=== PATIENT | female | born 1970 | race African-American/Black ===

== ENCOUNTER 2023-10-21 12:33 | Emergency (ER) | payer OTHER ==
[2023-10-21 12:50] VITALS: BP 148/79; PULSE 89; RESP 20; TEMP 98.3; BMI 26.4
[2023-10-21] MEDS ORDERED: FAMOTIDINE 20 MG TABLET PO ONE (13:50)
[2023-10-21] MEDS ORDERED: MAG HYDROX/AL HYDROX/SIMETH 30 ML UNIT-DOSE CUP PO ONE (13:50)
[2023-10-21] MEDS ORDERED: ACETAMINOPHEN 325 MG TABLET (FP) PO ONE (13:50)
[2023-10-21] MEDS ORDERED: FAMOTIDINE 20 MG TABLET ONE (14:10)
[2023-10-21] MEDS ORDERED: ACETAMINOPHEN 325 MG TABLET (FP) ONE (14:10)
[2023-10-21] MEDS ORDERED: MAG HYDROX/AL HYDROX/SIMETH 30 ML UNIT-DOSE CUP ONE (14:10)
[2023-10-21 14:36] LABS: BASO % 1.1 % (0-2.0); HEMATOCRIT 39.8 % (32.4-45.2); HEMOGLOBIN 12.8 GM/dL (10.7-15.3); LYMPH % 25.3 % (8-40); MCH 28.6 pg (25.7-33.7); MCHC 32.1 g/dl (32.0-36.0); MEAN CELL VOLUME 89.1 fl (80-96); MONO % 6.2 % (3.8-10.2); NEUT % 65.4 % (42.8-82.8); PLATELET COUNT 271 10^3/uL (134-434); RBC 4.47 M/mm3 (3.60-5.2); RDW 12.9 % (11.6-15.6); WHITE BLOOD COUNT 5.5 K/mm3 (4.0-10.0)
[2023-10-21 14:52] LABS: POTASSIUM 3.6 mmol/L (3.5-5.1)
[2023-10-21 14:55] LABS: ALBUMIN 4.2 g/dl (3.4-5.0); CALCIUM 10.2 mg/dL (8.5-10.1)
[2023-10-21 14:56] LABS: BLOOD UREA NITROGEN 9.2 mg/dL (7-18)
[2023-10-21 14:58] LABS: CREATININE 0.9 mg/dL (0.55-1.3)
[2023-10-21 15:00] LABS: BILIRUBIN,TOTAL 0.5 mg/dL (0.2-1); TOT PROT 8.5 g/dl (6.4-8.2)
== END 2023-10-21 15:45 | disposition home or self-care (01) ==
LOC: JER 12:33
DX: R10.13 Epigastric pain (principal); K21.9 Gastro-esophageal reflux disease without esophagitis
CPT/HCPCS: 36415; 80053; 83690; 84484; 85025; 93005; 93010; 99284-25